=== PATIENT | female | born 1950 | race African-American/Black ===

== ENCOUNTER 2017-01-01 04:15 | Day surgery (SDC) | payer BC ==
[2016-12-24 13:16] LABS: HEMATOCRIT 38.5 % (36.0-48.0); HEMOGLOBIN 12.3 g/dL (12.0-16.0)
[2016-12-24 13:25] LABS: BUN (BLOOD UREA NITROGEN) 14 MG/DL (6-23); CHLORIDE, SERUM 101 MMOL/L (96-112); CREATININE 0.94 MG/DL (0.55-1.02); GFR AFRICAN AMERICAN 73 ML/MIN (>=60); GFR NON AFRICAN AMERICAN 63 ML/MIN (>=60); GLUCOSE, SERUM 85 MG/DL (60-99); POTASSIUM, SERUM 3.7 MMOL/L (3.5-5.3); SODIUM, SERUM 142 MMOL/L (135-148)
[2016-12-24 13:26] LABS: CO2 (CARBON DIOXIDE) 32 MMOL/L (24-34)
--- NOTE | ~2017-01-01 | OP ---
Record Of Operation [facility] [address] [place]. [address] NAME: RICHARD BAEZA : 48 STATUS : [facility]#: [id number] AGE: 66 ADM/REG DATE : 01/01/17 MR#: [id number] REPORT SERV DATE: 01/01/17 DICTATED BY: TEVIN BACON DATE: 01/01/17 REPORT STATUS : Draft TRANSCRIBED BY: MODJono DATE: 01/01/17 DATE OF PROCEDURE: 01/01/2017 PREOPERATIVE DIAGNOSIS: Bilateral leg cramping. POSTOPERATIVE DIAGNOSIS: Bilateral leg cramping. OPERATION PERFORMED: Right quadriceps muscle biopsy. SURGEON: Tevin Bacon M.D. ANESTHESIA: General. ESTIMATED BLOOD LOSS: Less than 10 mL. IV FLUIDS: Adequate. INDICATION FOR PROCEDURE: Ms Baeza is a 66-year-old white female, who has had a several- month history of progressive bilateral thigh cramping. We have been requested to obtain a right quadriceps muscle biopsy for definitive diagnosis. DESCRIPTION OF OPERATION: After appropriate sedation, the patient was prepped and draped in proper sterile fashion. Skin and subcutaneous tissues over the right thigh were infiltrated with local anesthesia. A vertical incision was made through the skin and subcutaneous tissue, were incised down to the fascia overlying the right vastus lateralis. Incision was made in the fascia. An adequate area of muscle was noted. It was dissected out and clamped between two Lorna clamps. It was then transected. This gave us a 2 mL area of muscle. Hemostasis was obtained. The fascia was then closed using interrupted 3-0 Vicryl suture. The skin was closed using interrupted 3-0 Vicryl suture. Steri-Strips and dressings were then placed. The patient was taken to recovery room in satisfactory condition. ANATOLY/LAURENCE Tevin Bacon M.D. / [id number] CC: Jeanie Zapata M.D. Melinda J. Garcia-Rosell, MD
[~2017-01-01 04:15] MED LIST: ADALAT CC60 MG PO; AT25 PO; CELEBREX2 PO; COZAAR100 MG PO; CYMBALTA30 PO; FLEX PO; KLONO1 PO; LORTAB10 PO; LYRICA150 MG PO; LYRICA200 MG PO; MAXZIDE PO; MELA3 PO; NEUR600 PO; NIFEDICAL XL60 MG PO; NORCO1 TAB PO; OXYCON20 PO; PRILO PO; PROAIR HFA INH; SINGULAIR1 PO; SOMATAB PO; VITAMIN D31000 UNIT PO; WELLSR150 PO; ZOCOR40 PO; ZOCOR80 MG PO
== END 2017-01-01 11:42 | disposition home or self-care (01) ==
LOC: SDC 04:15
PROVIDERS: Specialist
PROC: 0KBS0ZX Excision of Right Lower Leg Muscle, Open Approach, Diagnostic (ICD-10-PCS; principal; 2017-01-01 05:45)
DX: M62.561 Muscle wasting and atrophy, not elsewhere classified, right lower leg (principal); I10 Essential (primary) hypertension; E78.00 Pure hypercholesterolemia, unspecified; J45.909 Unspecified asthma, uncomplicated; G47.30 Sleep apnea, unspecified; M19.90 Unspecified osteoarthritis, unspecified site; K21.9 Gastro-esophageal reflux disease without esophagitis; F32.9 Major depressive disorder, single episode, unspecified; Z88.8 Allergy status to other drugs, medicaments and biological substances; Z98.890 Other specified postprocedural states; Z90.710 Acquired absence of both cervix and uterus
CPT/HCPCS: 80048; 85014; 85018; 88305; 88313; 88319; 93005; A9270-GY; J0690; J2405; J3010